=== PATIENT | female | born 2000 | race Caucasian/White ===

== ENCOUNTER 2023-09-13 13:14 | Emergency (ER) | payer OTHER, SELFPAY ==
[2023-09-13 13:16] VITALS: BP 139/87; PULSE 85; RESP 16; TEMP 36.7; O2SAT 98; BMI 22.3
--- NOTE | 2023-09-13 13:34 | HMH.EDGENADL ---
Discharge Plan Disposition Patient Disposition: Home, Self-Care Prescriptions Prescriptions: New cefdinir 300 mg capsule 300 mg PO BID 7 Days Qty: 14 0RF Referrals Follow up/Referrals: Iker Sofia [Primary Care Provider] - See instructions Activity Restrictions/Add. Instructions Additional Instructions/Restrictions: Call your family doctor to establish care for this visit to the emergency department and schedule follow-up within 48 hours to ensure improvement. If you have any worsening of your condition or any other concerning signs or symptoms, return to the emergency department or your primary care doctor for further evaluation. Cefdinir twice daily for 7 days Clinical Impressions Clinical Impression: UTI (urinary tract infection) Instructions Patient Instructions: DI for Low Back Pain Discharge ED Provider: Benito Nicole General Adult HPI General Chief complaint: Back Pain/Injury Stated complaint: Back pain, congestion, runny nose, sneezing Time Seen by Provider: 09/13/23 13:20 Mode of Arrival: Ambulatory Source of Information: Patient Limitations: No Limitations Description of Symptoms (Recalled from ER Triage Doc. by RN): Pt reports lower back pain for 2 days. No reported injury but thinks she pulled a muscle at work bending and lifting boxes. She denies numbness or tingling. Pain is localized to lower lumbar. She says pain is usually only when bending, twisting, and coughing. History of Present Illness HPI narrative: 23-year-old female history of lower back pain for 2 days. It started 2 days prior to arrival after lifting at work. 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 Denies lower extremity weakness, bowel or bladder dysfunction, urinary symptoms, or any other concerns. Took ibuprofen, which helped mildly. Related Data Previous Rx's Medication Instructions Recorded cefdinir 300 mg capsule 300 mg PO BID 7 days #14 caps 09/13/23 Allergies Allergy/AdvReac Type Severity Reaction Status Date / Time No Known Allergies Allergy Verified 09/13/23 13:33 [facility] Disclaimer: The information contained in this section may have been updated after the patient was seen, as this information can be updated by other users. Medical History (Updated 09/13/23 @ 14:03 by Benito Nicole MD) No significant past medical history Surgical History (Updated 09/13/23 @ 13:32 by Jose A Cannon RN) History of cholecystectomy Social History Smoking Status: Never smoker alcohol intake: never current occupational status: employed Travel in the last 8 weeks: None ROS Obtained: Yes All systems reviewed & no additional complaints except as documented Physical Exam General General appearance: alert and in no apparent distress Respiratory Respiratory exam: Absent respiratory distress Cardiovascular Cardiovascular exam: Present regular rate and normal rhythm Back Exam Back exam: Absent CVA tenderness (R), CVA tenderness (L), vertebral tenderness or rashes Neurological Exam Neurological exam: Present alert, oriented X3, CN II-XII intact, normal gait and reflexes normal; Absent motor sensory deficit Medical Decision Making Saturnino Inquiry Pt receiving controlled substance: No Saturnino was queried for this patient: No Vital Signs: 09/13/23 13:16 Temperature 98.1 F Temperature Source Oral Pulse Rate [Right Radial] 85 Respiratory Rate 16 Blood Pressure [Right Arm] 139/87 Blood Pressure Mean [Right Arm] 104 Blood Pressure Source [Right Arm] Automatic Cuff Blood Pressure Position [Right Arm] Sitting 02 Sat by Pulse Oximetry 98 Oxygen Delivery Method Room Air Lab Data Lab Results 09/13/23 13:37: Urine Color Yellow, Urine Appearance Sl cloudy, Urine pH 6.0, Ur Specific [place] 1.025, Urine Protein Negative, Urine Glucose (UA) Negative, Urine Ketones Negative, Urine Blood Negative, Urine Nitrate Negative, Urine Bilirubin Negative, Urine Urobilinogen 0.2, Ur Leukocyte Est
[2023-09-13 13:42] LABS: Microscopic, Urine URINE MICROSCOPIC (MICROSCOPIC)
[2023-09-13 13:44] LABS: Appearance,Urine SL CLOUDY (Clear); Bilirubin,Urine Negative (Negative); Blood, Urine Negative (Negative); Color,Urine YELLOW (Yellow); Glucose,Urine (UA) Negative (Negative); Ketones,Urine Negative (Negative); Leukocyte Esterase,Urine 2+ (Negative); Nitrate,Urine Negative (Negative); Protein,Urine Negative (Negative); Specific Gravity, Urine 1.025 (1.005-1.030); Urobilinogen,Urine 0.2 EU/dl (0.2)
[2023-09-13 13:46] LABS: Urine Pregnancy, HCG Qual. Negative (Negative)
[2023-09-13 13:59] LABS: Bacteria,Urine Trace /lpf; RBC,Urine Occasional #/hpf (0-3)
[2023-09-13 14:13] VITALS: BP 119/74; PULSE 66; RESP 18; TEMP 37.1; O2SAT 96
--- NOTE | 2023-09-17 17:28 | PC.NURSE ---
pt urine culture on worklist, shows mixed urogenital vaishali. notified dr. muhammad who states no treatment needed.
== END 2023-09-13 14:13 | disposition home or self-care (01) ==
LOC: ER 14:18
PROVIDERS: Emergency Provider Emergency Medicine; PCP Family Medicine
DX: N39.0 Urinary tract infection, site not specified (principal); M54.59 Other low back pain
CPT/HCPCS: 81001; 81025; 87086; 99283